=== PATIENT | male | born 1935 | race Caucasian/White ===

== ENCOUNTER → 2017-08-03 | Day surgery (SDC) | payer MEDICARE ==
[2017-08-01 08:56] LABS: BASOPHILS # (AUTO) 0.1 (0.0-0.1); EOSINOPHILS # (AUTO) 0.4 (0.0-0.4); EOSINOPHILS % 5.7 % (0.0-6.0); HEMATOCRIT 37.3 % (38.2-49.6); HEMOGLOBIN 12.4 g/dL (14.0-18.0); LYMPHOCYTES # (AUTO) 1.2 (1.0-3.2); LYMPHOCYTES % 17.9 % (18.0-39.1); MEAN CORPUSCULAR HEMOGLOBIN 30.5 pg (28-32); MEAN CORPUSCULAR HGB CONC 33.2 g/dL (31-35); MEAN CORPUSCULAR VOLUME 91.9 fL (81-99); MONOCYTES # (AUTO) 0.5 (0.2-0.8); MONOCYTES % 7.7 % (4.4-11.3); NEUTROPHILS # (AUTO) 4.5 (2.1-6.9); NEUTROPHILS % 67.4 % (38.7-80.0); PLATELET COUNT 169 x10e3/uL (140-360); RED BLOOD COUNT 4.06 x10e6/uL (4.3-5.7); RED CELL DISTRIBUTION WIDTH 13.4 % (11.7-14.4)
[~2017-08-03] MED LIST: ATORVASTATIN CA20 MG PO; ECOTRIN325 MG PO; FENTANYL CITRATE/PF 100MCG/2 ML INJ ONE; LISINOPRIL2.5 MG PO; MIDAZOLAM HCL 2 MG/2 ML VIAL ONE; OMEPRAZOLE40 MG PO; PROPOFOL IV EMULSION 10 MG/ML 50 ML VIAL ONE
--- NOTE | 2017-08-03 09:13 | Operative Report ---
DATE OF PROCEDURE: August 03, 2017 REFERRING PHYSICIAN: Dr. John Spencer PROCEDURE PERFORMED: Esophagogastroduodenoscopy with pyloric channel stricture dilatation per TTS balloon dilators. INDICATIONS FOR EGD: History of heartburn, indigestion, bloating. MEDICATION: Patient was done under MAC. Please see anesthesiologist's note. PROCEDURE: With the patient in the left lateral decubitus position, the flexible fiberoptic Olympus gastroscope was introduced into the esophagus under direct visualization without any difficulty. There was some patchy erythema noted in the distal esophagus. The scope was then advanced with ease into the stomach. Mucosa overlying the antrum revealed some patchy erythema and low-grade edema, and the mucosa overlying the body revealed some diffuse erythema and low-grade to moderate edema. Biopsies were obtained and sent to stain for H. pylori. The pyloric channel was somewhat strictured, and that was dilated to size 20 mm per TTS balloon dilators and then was traversed with ease, and the scope was advanced all the way to the 2nd portion of the duodenum. The scope was then withdrawn slowly. Mucosa overlying the proximal 2nd portion and the duodenal bulb appeared to be within normal limits. The scope was then withdrawn back into the stomach and retroflexed. Mucosa overlying the fundus and the cardia appeared to be within normal limits. The scope was then straightened out. The stomach was decompressed. Scope was subsequently withdrawn. Patient tolerated the procedure well. IMPRESSION 1. Distal esophagitis, mild. 2. Gastritis, biopsied. Biopsies sent to stain for H. pylori. 3. 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 PLAN: Follow up histology. Continue omeprazole 40 mg 1 p.o. q.a.m. a.c. Job#: [id number] cc:CROW SPENCER DO
[2017-08-03 11:05] LABS: % IRON SATURATION 17 % (15-50); IRON 59 ug/dL (65-175); TOTAL IRON BINDING CAPACITY 354 ug/dL (261-478); TRANSFERRIN 253 mg/dL (174-364)
== END | disposition home or self-care (01) ==
LOC: OR 06:43
PROVIDERS: ATTEND Internal Medicine Gastroenterology
DX: K29.50 Unspecified chronic gastritis without bleeding (principal); K31.1 Adult hypertrophic pyloric stenosis; A04.8 Other specified bacterial intestinal infections; K20.9 Esophagitis, unspecified; I10 Essential (primary) hypertension; R05 Cough; Z01.810 Encounter for preprocedural cardiovascular examination; Z01.812 Encounter for preprocedural laboratory examination; Z68.25 Body mass index [BMI] 25.0-25.9, adult
CPT/HCPCS: 36415 ×2; 43239; 43245; 83540; 84466; 85025; 85045; 93005; C1726; J2250; 43233